=== PATIENT | male | born 1995 | race Caucasian/White ===

== ENCOUNTER 2017-02-21 12:15 | Emergency (ER) | payer SELFPAY ==
[2017-02-21] MEDS ORDERED: HYDROcodone/Acetaminophen 5/325 mg Tablet ONE (13:07)
--- NOTE | 2017-02-21 14:14 | RAD ---
RIGHT HAND THREE VIEWS 02/21/2017 HISTORY: Trauma. Pain. COMPARISON: None. FINDINGS: There is postoperative hardware associated with the fifth metacarpal. No acute fracture or evidence of dislocation is seen. IMPRESSION: No acute osseous abnormality noted. POS: [place]
== END 2017-02-21 13:37 | disposition home or self-care (01) ==
LOC: MADERS 12:15
DX: S60.221A Contusion of right hand, initial encounter (principal); F17.210 Nicotine dependence, cigarettes, uncomplicated; W50.0XXA Accidental hit or strike by another person, initial encounter

== ENCOUNTER 2017-05-15 19:31 | Emergency (ER) | payer SELFPAY ==
[2017-05-15] MEDS ORDERED: traMADol HCl 50 MG TAB ONE (20:17)
--- NOTE | 2017-05-15 20:18 | RAD ---
RIGHT FOOT THREE VIEWS: 05/15/17 HISTORY: 22-year-old male with right foot pain following trauma, log fell on foot today. IMPRESSION: No fracture, dislocation, or other significant acute osseous abnormality. POS: [facility]
== END 2017-05-15 20:22 | disposition home or self-care (01) ==
LOC: MADERS 19:31
DX: S90.31XA Contusion of right foot, initial encounter (principal); F17.210 Nicotine dependence, cigarettes, uncomplicated; W23.0XXA Caught, crushed, jammed, or pinched between moving objects, initial encounter

== ENCOUNTER 2017-10-29 14:14 | Emergency (ER) | payer SELFPAY ==
[2017-10-29] MEDS ORDERED: Phenergan/Codeine 10-6.25mg/5ml UDCUP ONE (16:22)
[2017-10-29] MEDS ORDERED: HYDROcodone/Acetaminophen 10/325 mg Tablet ONE (16:22)
[2017-10-29] MEDS ORDERED: Ondansetron ODT 4 MG TAB ONE (16:23)
[2017-10-29] MEDS ORDERED: Naproxen 500 MG TAB ONE (16:23)
[2017-10-29] MEDS ORDERED: AMOXicillin 250 MG CAP ONE (16:23)
== END 2017-10-29 16:30 | disposition home or self-care (01) ==
LOC: MADERS 14:14
DX: J10.1 Influenza due to other identified influenza virus with other respiratory manifestations (principal); J20.9 Acute bronchitis, unspecified; F17.210 Nicotine dependence, cigarettes, uncomplicated
CPT/HCPCS: 87081; 87430; 87804; 99283; Q0162